=== PATIENT | female | born 2000 | race Caucasian/White ===

== ENCOUNTER → 2022-08-21 | Outpatient (REF) | payer OTHER | LOC: M WUC 16:20 | PROVIDERS: ATTEND Student in an Organized Health Care Education/Training Program | DX: R30.0 Dysuria (principal) ==

== ENCOUNTER → 2022-11-04 | Outpatient (CLI) | payer OTHER | LOC: M WUC 12:06 | PROVIDERS: ATTEND Physician Assistant | DX: M67.441 Ganglion, right hand (principal) ==

== ENCOUNTER 2023-11-21 00:22 | Emergency (ER) | payer OTHER ==
[~2023-11-21] VITALS: Ht 162.6 cm; Wt 72.1 kg
[2023-11-21 06:58] VITALS: BP 139/74; TEMP 97.8; O2SAT 100
== END 2023-11-21 06:59 | disposition home or self-care (01) ==
LOC: M ED 00:22
DX: S73.102A Unspecified sprain of left hip, initial encounter (principal); W19.XXXA Unspecified fall, initial encounter; Y92.830 Public park as the place of occurrence of the external cause; Y93.89 Activity, other specified; Y99.9 Unspecified external cause status; Z88.2 Allergy status to sulfonamides